=== PATIENT | male | born 1980 | race Caucasian/White ===

== ENCOUNTER 2024-03-29 12:14 | Inpatient (IN) | payer OTHER, MEDICARE, SELFPAY ==
[2024-03-29 12:16] VITALS: BP 123/72; PULSE 121; RESP 16; TEMP 37.3; O2SAT 99; BMI 21.7
--- NOTE | 2024-03-29 12:18 | ECG_ITS ---
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: : [id number] Requested By: Olimpia Donaldson Order Number: [id number] Reading MD: JOHN TREADWELL Measurements Intervals [place] Rate: 119 P: 60 DE: 107 QRS: 53 QRSD: 97 T: 53 QT: 367 QTc: 517 Interpretive Statements SINUS TACHYCARDIA WITH SHORT DE INTERVAL POSSIBLE LEFT ATRIAL ENLARGEMENT [-0.1mV P-WAVE IN V1/V2] MINIMAL ST DEPRESSION [0.025+ mV ST DEPRESSION] ABNORMAL RHYTHM ECG No previous ECG available for comparison Electronically Signed On 03-30-2024 11:50:40 CDT by JOHN TREADWELL [id number]
--- NOTE | 2024-03-29 12:25 | ED.C_ITS ---
HPI - Psych 2 General: Chief Complaint: Psychiatric Symptoms Stated Complaint: ETOH detox, Hearing voices Time Seen by Provider: 03/29/24 12:16 Source: patient and EMS Mode of arrival: EMS Limitations: no limitations History of Present Illness: 44-year-old male states that he has been a longtime alcoholic for the last 30 years. He states he drinks daily that has had some depression he states has been hearing voices but has been drinking heavier. He states he wants to get help with his drinking. He denies being SI or HI. He states he is also been having muscle cramps has not been eating and has had some vomiting. Associated symptoms: Reports auditory hallucinations and depression Related Data Home Medications Medication Instructions Recorded Confirmed No Known Home Medications 03/29/24 03/29/24 Allergies Allergy/AdvReac Type Severity Reaction Status Date / Time bupropion [From Wellbutrin] Allergy ADR-Itching Verified 03/29/24 12:20 Review of Systems 2 Const: Denies: fever(s), chills, body aches or change in appetite ENMT: Denies: throat pain or dental pain Card: Denies: chest pain Resp: Denies: dyspnea GI: Reports: abdominal pain, nausea and vomiting; Denies: diarrhea : Denies: dysuria Musc: Denies: neck pain or back pain Skin/Breast: Denies: rash Neuro: Denies: headache(s) Psych: Reports: depression and auditory hallucinations Physical Exam 2 Const: COMMON NORMALS: no acute distress, patient oriented x3 and healthy appearing HENMT: COMMON NORMALS: normocephalic and atraumatic HEAD & SCALP: n ormocephalic and atraumatic Neck/C-Spine: COMMON NORMALS: full ROM and supple Chest: COMMONS NORMALS: normal inspection of the chest Resp: COMMON NORMALS: normal respiratory effort Cardio: COMMON NORMALS: regular rhythm and No murmurs present (Cardio) R ATE: tachycardic RHYTHM: regular rhythm GI: COMMON NORMALS: Normal to inspection, nondistended, normoactive bowel sounds present, Soft to palpation, non-tender and no masses PALPATION: Yes Soft to palpation Extremity: COMMON NORMALS: normal to inspection and full ROM Neuro: COMMON NORMALS: patient oriented x3, moves all extremities and no focal motor deficits Psych: COMMON NORMALS: mental status grossly normal, Normal thought process present and cooperative THOUGHT PROCESS: Normal thought process present Skin: COMMON NORMALS: no rashes or lesions noted and no wounds GENERAL SKIN EXAM: no rashes or lesions noted Course 2 Vital Signs: Vital signs: Vital Signs Temperature 99.1 F 03/29/24 12:16 Pulse Rate 121 H 03/29/24 12:36 Respiratory Rate 16 03/29/24 12:36 Blood Pressure 123/72 03/29/24 12:36 Pulse Oximetry 99 03/29/24 12:36 Oxygen Delivery Me thod Room Air 03/29/24 12:16 [facility] - Psych Medical Decision Making Patient presents here with hallucinations he voluntarily wants to be admitted to the psych [facility] he has a long history of alcoholism does have an elevated bilirubin is likely chronic he has no signs of common bile duct occlusion he has no pain here he was hypokalemic hypomanic I did replace him in the ER will admit at this time to the psych [facility] Medical Records I reviewed the patient's medical records. Lab Data I reviewed the patient's lab results. 03/29/24 12:23 03/29/24 12:23 Radiology Impressions Abdomen/Pelvis CT 03/29/24 13:16 IMPRESSION: 1. Diffuse fatty infiltration of the liver. 2. Moderate esophageal hiatal hernia with submucosal enhancement suspicious for esophagitis and gastritis. Enhancement extending into the duodenum suspicious for duodenitis. 3. No hydronephrosis in either kidney. Urine distended bladder. 4. No other acute findings. 5. LEFT adrenal adenoma. Laboratory Results WBC 10.60 10^3/uL (3.29-11.43) 03/29/24 12:23 RBC 4.88 10^6/uL (3.85-5.65) 03/29/24 12:23 Hgb 16.40 g/dL (11.27-16.99) 03/29/24 12:23 Hct 46.5 % (37-53) 03/29/24 12:23 MCV 95.3 fl (82-101) 03/29/24 12:23 MCH 33.6 pg (27-33) H 03/29/24 12:23 MCHC 35.3 g/dL (30-55) 03/29/24 12:23 RDW 21.0 % (12.1-15.1) H 03/29/24 12:23 Plt Count 68 10^3/cmm (157-399) L 03/29/24 12:23 MPV 12.6 fL (7.4-10.4) H 03/29/24 12:23 Neut % (Auto) 67.8 % 03/29/24 12:23 Lymph % (Auto) 19.3 % 03/29/24 12:23 [place] % (Auto) 12.3 % 03/29/24 12:23 Eos % (Auto) 0.1 % 03/29/24 12:23 Baso % (Auto) 0.2 % 03/29/24 12:23 Neut # (Auto) 7.19 10^3/uL (1.8-7.7) 03/29/24 12:23 Lymph # (Auto) 2.1 10^3/uL (0.8-4.8) 03/29/24 12:23 [place] # (Auto) 1.3 10^3/uL (0.2-0.9) H 03/29/24 12:23 Eos # (Auto) 0.0 10^3/uL (0.0-0.8) 03/29/24 12:23 Baso # (Auto) 0.0 10^3/uL (0.0-0.1) 03/29/24 12:23 Nucleated RBC % (auto) 0 % 03/29/24 12: Nucleated RBCs # 0.0 /100WBC 03/29/24 12:23 PT 15.00 SECONDS (12.1-14.9) H 03/29/24 12:23 INR 1.14 (0.8-1.2) 03/29/24 12:23 Sodium 133 mmol/L (136-145) L 03/29/24 12:23 Potassium 2.9 mmol/L (3.5-5.1) L 03/29/24 12:23 Chloride 82 mmol/L (98-107) L 03/29/24 12:23 Carbon Dioxide 31 mmol/L (22-29) H 03/29/24 12:23 Anion Gap 22.9 (5-19) H 03/29/24 12:23 BUN 8 mg/dL (6-20) 03/29/24 12:23 Creatinine 1.0 mg/dL (0.7-1.2) 03/29/24 12:23 GFR Calculation 80.8 mL/min (90-130) L 03/29/24 12:23 Glucose 92 mg/dL (65-115) 03/29/24 12:23 Calculated Osmolality 274 mOsm/kg (285-295) L 03/29/24 12:23 Calcium 8.7 mg/dL (8.5-10.5) 03/29/24 12:23 Magnesium 1.3 mg/dL (1.7-2.3) L 03/29/24 12:23 Total Bilirubin 5.2 mg/dL (0.15-1.2) H 03/29/24 12:23 AST 168 U/L (0-40) H 03/29/24 12:23 ALT 122 U/L (0-41) H 03/29/24 12:23 Alkaline Phosphatase 176 U/L (40-130) H 03/29/24 12:23 Total Protein 6.1 g/dL (6.6-8.7) L 03/29/24 12:23 Albumin 3.4 g/dL (3.5-5.2) L 03/29/24 12:23 Globulin 2.7 g/dL (1.3-4.6) 03/29/24 12:23 Lipase 75 U/L (13-60) H 03/29/24 12:23 Salicylates < 0.3 mg/dL (3-10) L 03/29/24 12:23 Urine Opiates Screen Negative ng/mL (Negative) 03/29/24 13:52 Acetaminophen < 5.0 ug/mL (10-30) L 03/29/24 12:23 Ur Barbiturates Screen Negative ng/mL (Negative) 03/29/24 13:52 Ur Phencyclidine Scrn Negative ng/mL (Negative) 03/29/24 13:52 Ur Amphetamines Screen Negative ng/mL (Negative) 03/29/24 13:52 U Benzodiazepines Scrn Negative ng/mL (Negative) 03/29/24 13:52 Urine Cocaine Screen Negative ng/mL (Negative) 03/29/24 13:52 U Marijuana (THC) Screen Positive ng/mL (Negative) H 03/29/24 13:52 Ethyl Alcohol 91 mg/dL (0-10) H 03/29/24 12:23 All radiology interpretation(s) finalized by discharge EKG Data EKG 1: I personally reviewed and interpreted this EKG as follows: EKG interpretation date: 03/29/24 EKG interpretation time: 12:18 Interpretation: sinus tach hr [address] or t wave abnormalities qrs 97 qtc 438 Discharge Plan Discharge Patient Disposition: Admitted As Inpatient Clinical Impression: Hallucinations, Alcohol abuse, Hypokalemia Condition: Stable Prescriptions: No Action No Known Home Medications Coding Level of Care Code ED Purification Supervisor for Devaughn Pulido
[2024-03-29 12:30] LABS: Basophils % 0.2 %; Eosinophils % 0.1 %; Hematocrit 46.5 % (37-53); Lymphocytes # 2.1 10^3/uL (0.8-4.8); Lymphocytes % 19.3 %; Mean Corpuscular HGB Conc 35.3 g/dL (30-55); Mean Corpuscular Hemoglobin 33.6 pg (27-33); Mean Corpuscular Volume 95.3 fl (82-101); Mean Platelet Volume 12.6 fL (7.4-10.4); Monocytes # 1.3 10^3/uL (0.2-0.9); Monocytes % 12.3 %; Neutrophils # 7.19 10^3/uL (1.8-7.7); Neutrophils % 67.8 %; Nucleated Red Blood Cells % 0 %; Platelet Count 68 10^3/cmm (157-399); Red Blood Count 4.88 10^6/uL (3.85-5.65)
[2024-03-29 12:36] VITALS: BP 123/72; PULSE 121; RESP 16; O2SAT 99
[2024-03-29] MEDS: ondansetron 2 mg/ML SDV 2 mL 4 MG IVP (12:36)
[2024-03-29] MEDS: multivitamin therapeutic Tablet 1 TAB PO (12:39)
[2024-03-29 12:52] LABS: Alanine Aminotransferase 122 U/L (0-41); Albumin Level 3.4 g/dL (3.5-5.2); Alcohol Level 91 mg/dL (0-10); Alkaline Phosphatase 176 U/L (40-130); Anion Gap 22.9 (5-19); Aspartate Amino Transferase 168 U/L (0-40); Blood Urea Nitrogen 8 mg/dL (6-20); Calcium 8.7 mg/dL (8.5-10.5); Carbon Dioxide 31 mmol/L (22-29); Chloride 82 mmol/L (98-107); Creatinine Clr Calc Pharmacy 99.7368; Globulin 2.7 g/dL (1.3-4.6); Glomerular Filtration Rate 80.8 mL/min (90-130); Glucose 92 mg/dL (65-115); Lipase 75 U/L (13-60); Magnesium 1.3 mg/dL (1.7-2.3); Osmolality Calculated 274 mOsm/kg (285-295); Sodium 133 mmol/L (136-145); Total Bilirubin 5.2 mg/dL (0.15-1.2); Total Protein 6.1 g/dL (6.6-8.7)
[2024-03-29 12:57] LABS: Acetaminophen < 5.0 ug/mL (10-30); Potassium 2.9 mmol/L (3.5-5.1); Salicylate < 0.3 mg/dL (3-10)
--- NOTE | 2024-03-29 12:58 | PC.PHAR ---
Addendum entered by Nydia Magaña 03/29/24 14:15: [facility] Narcan HCL 8mg spray prn, Omeprazole 20mg qam, and duloxetine hcl 20mg daily. No last fill dates given. Pt states has taken Lamotrigine, gabapentin, ziprasidone, and naltrexone in the past. Unable to verify any of these medications. Original Note: [facility] is [facility] 03/29/24 12:56pm. Pt states takes no current medications but used to take several.
--- NOTE | 2024-03-29 13:16 | CT_ITS ---
WS: [id number] CT ABDOMEN PELVIS TECHNIQUE: Contrast-enhanced CT of the abdomen and pelvis with coronal and sagittal reformatted image s. CLINICAL INFORMATION: abd pain COMPARISON: None. DLP: 490.[address] scans at [facility] use at least one of these dose optimization techniques: automated e xposure control; mA and/or kV adjustment per patient size (includes targeted exams where dose is matc hed to clinical indication); or iterative reconstruction. FINDINGS: Hepatomegaly with diffuse fatty filtration of the liver. Moderate esophageal hiatal hernia with diffu se enhancement suspicious for esophagitis and gastritis. Normal portal vein and splenic vein. Adrenal glands are normal. Small LEFT adrenal nodule measuring 10 mm. Normal renal parenchymal enhancement. Normal pancreatic parenchymal enhancement. Normal portal vein and splenic vein. Normal caliber abdomi nal aorta. Celiac and SMA are patent. Normal portal vein and splenic vein. Normal spleen. Adrenal gla nds are normal. No hydronephrosis in either kidney. Urine distended bladder. CT/CT abdomen pelvis w con* [id number] IMPRESSION: 1. Diffuse fatty infiltration of the liver. 2. Moderate esophageal hiatal hernia with submucosal enhancement suspicious fo r esophagitis and gastritis. Enhancement extending into the duodenum suspicious for duodenitis. 3. No hydronephrosis in either kidney. Urine distended bladder. 4. No other acute findings. 5. LEFT adrenal adenoma.
[2024-03-29] MEDS: potassium chloride ER 20 mEq Tablet 60 MEQ PO (13:21)
[2024-03-29] MEDS: iohexol 350 mg/mL 500 mL Btl (per mL) IV (13:29)
[2024-03-29] MEDS: magnesium sulfate premix 2 GM/50 ML PIGGYBACK IV (13:51)
[2024-03-29 14:10] LABS: INR 1.14 (0.8-1.2)
[2024-03-29 14:16] LABS: Amphetamines Screen Urine Negative (Negative); Barbiturates Screen Urine Negative (Negative); Benzodiazepines Screen Urine Negative (Negative); Cocaine Screen Urine Negative (Negative); Opiate Screen Urine Negative (Negative); PCP Screen Urine Negative (Negative); THC Screen Urine Positive (Negative)
[2024-03-29 17:34] VITALS: BP 116/75; PULSE 116; O2SAT 96
[2024-03-29] MEDS: haloperidol 5 mg Tablet PO (17:55)
--- NOTE | 2024-03-29 17:58 | PC.NURSE ---
ADMINISTERED 5MG HALDOL FOR AUDITORY HALLUCINATIONS. PATIENT STATED TO STAFF THAT IT IS DIFFICULT TO FOCUS ON WHAT STAFF IS SAYING BECAUSE OF THE INTRUSIVE VOICES.
[2024-03-29 18:16] VITALS: BP 124/66; PULSE 145; RESP 20; TEMP 36.6; O2SAT 94
[2024-03-29] MEDS: LORazepam 2 mg Tablet PO (18:47)
--- NOTE | 2024-03-29 18:48 | PC.NURSE ---
ADMINISTERED ATIVAN 2MG PO PER CIWA PROTOCOL. PATIENT SCORED 10 ON SCALE. WILL CONTINUE TO MONITOR.
[2024-03-29 20:00] VITALS: BP 109/70; PULSE 117; RESP 16; TEMP 36.9; O2SAT 92
[2024-03-29 23:53] VITALS: BP 100/70; PULSE 80; RESP 16; O2SAT 98
[2024-03-30 03:50] VITALS: BP 112/76; PULSE 110; RESP 17; TEMP 37.5; O2SAT 94
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
[2024-03-30 07:46] VITALS: BP 96/65; PULSE 119; RESP 18; TEMP 36.8; O2SAT 93
--- NOTE | 2024-03-30 07:56 | PC.NURSE ---
PT C/O OF ACID REFLUX FROM DRINKING SO MUCH ALCOHOL. PT WAS ASSURED THAT RN WOULD OBTAIN ORDERS FOR MAALOX 30 MLS Q 4 HOURS NEEDED FOR INDIGESTION. PT IS HERE FOR ALCOHOL WITHDRAWALS AND SCORED 16 ON CIWA PROTOCOL. PT IS VISIBLY SHAKEY WITH TREMORS OBSERVED AND INCREASED ANXIETY. PT IS UNSURE OF DATE AND TIME AND IS NOT ABLE TO TELL RN THE YEAR. MED NURSE WAS NOTIFIED TO GIVE ATIVAN ORDERED PER CIWA PROTOCOL AND MAALOX FOR INDIGESTION. PT THANKS RN. SUPPORT VOICED.
[2024-03-30] MEDS: folic acid 1 mg Tablet PO (08:38)
[2024-03-30] MEDS: thiamine 100 mg Tablet PO (08:38)
[2024-03-30] MEDS: LORazepam 2 mg Tablet PO ×2 (08:38→21:10)
[2024-03-30] MEDS: alum-mag-hydroxide-sime 30 mL UDC PO (08:38)
[2024-03-30] MEDS: multivitamin therapeutic Tablet 1 TAB PO (08:38)
--- NOTE | 2024-03-30 09:19 | PC.NURSE ---
PT RESTING IN BED. CONTINUES [facility] PROTOCOL FOR ALCOHOL WITHDRAWAL. PT DID RECEIVE 2 MG OF ATIVAN THIS AM DUE TO VISIBLE TREMORS, ANXIETY AND NOT ORIENTATED. PT RATES PAIN 2/10 THAT IS INDIGESTION IN NATURE. MAALOX 30 MG WAS GIVEN FOR INDIGESTIONS. PT IS NOTED TO HAVE FLAT AFFECT AND GUARDED WITH STAFF. PT IS NOTED TO BE WITHDRAWN. DENIES SI/HI AND VH AT THIS TIME. RATES ANXIETY 9/10 AND DEPRESSION 8/10. PT STATES HIS SLEEP WAS ON AND OFF. PT0 ENDORSE AUDITORY HALLUCINATIONS THAT ARE NEGATIVE AND COMMANDING. PT STATES THAT'S WHY I DRINK TO KEEP THE VOICES AWAY. PT STATES GOAL TODAY IS JUST TO GET THROUGH IT. ALL QUESTIONS ANSWERED AND SUPPORT WAS VOICED.
[2024-03-30 12:00] VITALS: BP 108/73; PULSE 115; RESP 18; TEMP 37.2; O2SAT 97
[2024-03-30 16:00] VITALS: BP 100/69; PULSE 129; RESP 20; TEMP 37.3; O2SAT 94
[2024-03-30 20:00] VITALS: BP 116/77; PULSE 100; RESP 16; TEMP 36.8; O2SAT 95
[2024-03-30] MEDS: ondansetron 4 MG Tablet PO (21:11)
[2024-03-30] MEDS: trazodone 50 mg Tablet PO (21:11)
--- NOTE | 2024-03-30 21:18 | NPU.GN ---
[facility] Topic: General Mood of Group20:00 CIWA =12
[2024-03-31] VITALS: BP 110/76; PULSE 90; RESP 16
[2024-03-31 04:00] VITALS: BP 110/60; PULSE 88; RESP 16
[2024-03-31 07:41] VITALS: BP 111/81; PULSE 114; RESP 18; TEMP 37.7; O2SAT 95
[2024-03-31] MEDS: folic acid 1 mg Tablet PO (08:43)
[2024-03-31] MEDS: multivitamin therapeutic Tablet 1 TAB PO (08:43)
[2024-03-31] MEDS: thiamine 100 mg Tablet PO (08:43)
[2024-03-31] MEDS: nicotine 21 mg Patch 1 PATCH TRANSDERMA (08:47)
[2024-03-31] MEDS: LORazepam 2 mg Tablet PO ×2 (08:48→20:58)
[2024-03-31] MEDS: paliperidone ER 6 mg Tablet PO (09:36)
[2024-03-31 14:27] VITALS: BP 144/82; PULSE 73; RESP 16; TEMP 36.8; O2SAT 98
--- NOTE | 2024-03-31 16:51 | P.NPUPN_ITS ---
Subjective NPU 2 Subjective: Patient presented today reporting that he is doing okay. We discussed, benefits and alternatives of initiating Invega 6 mg p.o. daily and he understood and agreed to proceed as is documented in this note. He is still struggling with reports of discomfort in his esophagus and we also reviewed the risks, benefits and alternatives of a proton pump inhibitor and he understood and agreed to proceed as documented with that medication as well. He denied any side effects to the medication. Mental Status Exam 2 MSE Comments: This is an slender, underweight white male in hospital scrubs with limited grooming and eye contact. No abnormal movements except for psychomotor retardation. Cooperative with exam in mild to moderate distress. Speech was mostly decreased rate and volume. Mood described as a little down, affect slightly odd and guarded. Thought process was linear and mostly organized. Thought content: Patient denied suicidal or homicidal ideation , there were no delusions reported but concerns for paranoid or persecutory delusions noted, he denied visual but endorsed auditory hallucinations. The patient reported feeling paranoid and hearing voices. He denied any current thoughts of self-harm or harm to others. He reported feeling tired and has been sleeping a lot. His mental health symptoms appear to be exacerbated by substance use.him Attention and concentration were intact and memory appeared mostly reliable but none were formally tested. He is alert and oriented x 3. Insight and judgment limited, impulse control is impaired. Vitals/I&O/Wt Last Vital Signs Temp 98.3 F 03/31/24 14:27 Pulse 73 03/31/24 14:27 Resp 16 03/31/24 14:27 BP 144/82 03/31/24 14:27 Pulse Ox 98 03/31/24 14:27 O2 Del Method Room Air 03/31/24 14:27 Data NPU 03/29/24 12:23 03/29/24 12:23 A&P Assessment and plan (1) Hallucinations: (2) Alcohol use disorder, severe, dependence: (3) Alcohol intoxication: (4) Alcohol withdrawal: (5) Psychosis: Plan This is a 44-year-old white male who presented denying significant mental health history till recently possibly. The patient presents with a complex history of substance abuse, trauma, and mental health issues, including auditory hallucinations and paranoia. His excessive alcohol consumption has led to physical health issues, including damage to his esophagus. 1. Consider starting Invega 6 mg p.o. daily. 2. Continue every 15 minute checks for safety. 3. Encourage individual, group and milieu therapies. 4. Obtain collateral information on what his baseline actually is. 5. Encourage sober living treatment after discharge at the highest level of care to which he is willing to commit. 6. Continue CIWA protocol Involuntary Hold Information 2 96 Hour Hold: 96 Hour Involuntary Admission: No Attestations NPU 2 Medical Necessity Statement*: Inpatient hospitalization is medically necessary and the clinically appropriate intervention at this time. We will monitor medication to make changes as indicated. His likely length of stay 2-4 days. Coding Level of Care Code Acute Code for g Fwd Diagnoses Hallucinations R44.3 Alcohol use disorder, severe, dependence F10.20 Alcohol intoxication F10.929 Alcohol withdrawal F10.939 Psychosis F29
[2024-03-31] MEDS: pantoprazole DR 40 mg Tablet PO (17:54)
[2024-03-31 20:00] VITALS: BP 101/76; PULSE 112; RESP 17; TEMP 36.9; O2SAT 97
[2024-03-31] MEDS: trazodone 50 mg Tablet PO ×2 (20:40→23:42)
[2024-03-31 23:51] VITALS: BP 124/86; PULSE 127; RESP 18; TEMP 36.7; O2SAT 100
[2024-04-01 04:00] VITALS: BP 108/76; PULSE 130; RESP 18; O2SAT 99
[2024-04-01] MEDS: LORazepam 2 mg Tablet PO (04:11)
[2024-04-01 08:00] VITALS: BP 119/87; PULSE 120; RESP 17; O2SAT 99
[2024-04-01] MEDS: folic acid 1 mg Tablet PO (08:24)
[2024-04-01] MEDS: paliperidone ER 6 mg Tablet PO (08:24)
[2024-04-01] MEDS: thiamine 100 mg Tablet PO (08:24)
[2024-04-01] MEDS: multivitamin therapeutic Tablet 1 TAB PO (08:24)
[2024-04-01] MEDS: pantoprazole DR 40 mg Tablet PO (08:24)
--- NOTE | 2024-04-01 09:24 | PC.NURSE ---
Patient denies si/hi and vh. Patient does endorse ah. He states the voices are not saying anything in particular and that he is attempting to ignore. Patient says his depression is about the same as it was when he was admitted. He endorses a headache of a 4/10 and says he slept like crap last night.
[2024-04-01] MEDS: nicotine 21 mg Patch 1 PATCH TRANSDERMA (11:25)
[2024-04-01 12:00] VITALS: BP 126/80; PULSE 126; RESP 18; O2SAT 99
[2024-04-01 16:00] VITALS: BP 112/75; PULSE 110; RESP 17; TEMP 36.6; O2SAT 96
--- NOTE | 2024-04-01 18:30 | P.NPUPN_ITS ---
Subjective NPU 2 Subjective: Patient presents today reporting that things are going okay. He reports some continued withdrawal symptoms but that he is continuing to get medication for those symptoms. We discussed his questions about possible follow-up treatment will be best managed by the social work team on Wednesday. He reports he is open to a lot of possibilities and wants to make sure that he has success from this attempt at sobriety. He denies any side effects to the medication. Mental Status Exam 2 MSE Comments: This is an slender, underweight white male in hospital scrubs with limited grooming and eye contact. No abnormal movements except for psychomotor retardation. Cooperative with exam in mild to moderate distress. Speech was mostly decreased rate and volume. Mood described as a little down, affect slightly odd and guarded. Thought process was linear and mostly organized. Thought content: Patient denied suicidal or homicidal ideation , there were no delusions reported but concerns for paranoid or persecutory delusions noted, he denied visual but endorsed auditory hallucinations. The patient reported feeling paranoid and hearing voices. He denied any current thoughts of self-harm or harm to others. He reported feeling tired and has been sleeping a lot. His mental health symptoms appear to be exacerbated by substance use.him Attention and concentration were intact and memory appeared mostly reliable but none were formally tested. He is alert and oriented x 3. Insight and judgment limited, impulse control is impaired. Vitals/I&O/Wt Last Vital Signs Temp 97.8 F 04/01/24 19:29 Pulse 142 H 04/01/24 19:29 Resp 20 H 04/01/24 19:29 BP 111/79 04/01/24 19:29 Pulse Ox 97 04/01/24 19:29 O2 Del Method Room Air 04/01/24 19:29 Weight last 48 hrs Weight 75.296 kg Data NPU 03/29/24 12:23 03/29/24 12:23 A&P Assessment and plan (1) Hallucinations: (2) Alcohol use disorder, severe, dependence: (3) Alcohol intoxication: (4) Alcohol withdrawal: (5) Psychosis: Plan This is a 44-year-old white male who presented denying significant mental health history till recently possibly. The patient presents with a complex history of substance abuse, trauma, and mental health issues, including auditory hallucinations and paranoia. His excessive alcohol consumption has led to physical health issues, including damage to his esophagus. 1. Consider starting Invega 6 mg p.o. daily. 2. Continue every 15 minute checks for safety. 3. Encourage individual, group and milieu therapies. 4. Obtain collateral information on what his baseline actually is. 5. Encourage sober living treatment after discharge at the highest level of care to which he is willing to commit. 6. Continue [facility] protocol Involuntary Hold Information 2 96 Hour Hold: 96 Hour Involuntary Admission: No Attestations NPU 2 Medical Necessity Statement*: Inpatient hospitalization is medically necessary and the clinically appropriate intervention at this time. We will monitor medication to make changes as indicated. His likely length of stay 2-3 days. Coding Level of Care Code Acute Code for g Fwd Diagnoses Hallucinations R44.3 Alcohol use disorder, severe, dependence F10.20 Alcohol intoxication F10.929 Alcohol withdrawal F10.939 Psychosis F29
[2024-04-01 19:29] VITALS: BP 111/79; PULSE 142; RESP 20; TEMP 36.6; O2SAT 97
[2024-04-01] MEDS: nicotine 2 mg Gum BUCCAL (20:17)
[2024-04-01] MEDS: trazodone 50 mg Tablet PO (20:48)
[2024-04-01] MEDS: acetaminophen 325 mg Tablet 650 MG PO (20:48)
[2024-04-01] MEDS: OLANZapine 5 mg ODT PO (20:49)
[2024-04-02] VITALS: BP 124/78; PULSE 106; RESP 18; TEMP 36.9; O2SAT 97
[2024-04-02] MEDS: nicotine 2 mg Gum BUCCAL (01:44)
[2024-04-02] MEDS: haloperidol 5 mg Tablet PO ×2 (01:47→20:04)
[2024-04-02 04:00] VITALS: BP 118/80; PULSE 129; RESP 18; TEMP 36.6; O2SAT 98
[2024-04-02 06:00] VITALS: BMI 22.5
[2024-04-02 07:51] VITALS: BP 108/71; PULSE 93; RESP 16; TEMP 37.3; O2SAT 95
[2024-04-02] MEDS: multivitamin therapeutic Tablet 1 TAB PO (08:13)
[2024-04-02] MEDS: paliperidone ER 6 mg Tablet PO (08:13)
[2024-04-02] MEDS: thiamine 100 mg Tablet PO (08:13)
[2024-04-02] MEDS: nicotine 21 mg Patch 1 PATCH TRANSDERMA (08:13)
[2024-04-02] MEDS: folic acid 1 mg Tablet PO (08:13)
[2024-04-02] MEDS: pantoprazole DR 40 mg Tablet PO (08:13)
[2024-04-02 12:00] VITALS: BP 120/85; PULSE 108; RESP 17; TEMP 37.1; O2SAT 98
[2024-04-02 16:00] VITALS: BP 124/85; PULSE 113; RESP 17; TEMP 36.6; O2SAT 99
[2024-04-02] MEDS: acetaminophen 325 mg Tablet 650 MG PO (16:38)
--- NOTE | 2024-04-02 19:04 | P.NPUPN_ITS ---
Subjective NPU 2 Subjective: Patient presents today reporting that he is doing all right. He continues to be very comfortable with being here per staff reports and direct observation. He endorses having limited options and is really hopeful that the social work team will be able to assist him in finding some options when they return tomorrow. He denied any side effects of the medications. Mental Status Exam 2 MSE Comments: This is an slender, underweight white male in hospital scrubs with improved grooming and eye contact. No abnormal movements except for psychomotor retardation. Cooperative with exam in mild distress. Speech was mostly decreased rate and volume. Mood described as a little better, affect slightly odd and guarded. Thought process was linear and mostly organized. Thought content: Patient denied suicidal or homicidal ideation , there were no delusions reported but concerns for paranoid or persecutory delusions noted, he denied visual but endorsed auditory hallucinations. Attention and concentration were intact and memory appeared mostly reliable but none were formally tested. He is alert and oriented x 3. Insight and judgment limited, impulse control is impaired. Vitals/I&O/Wt Last Vital Signs Temp 97.8 F 04/02/24 16:00 Pulse 113 H 04/02/24 16:00 Resp 17 04/02/24 16:00 BP 124/85 04/02/24 16:00 Pulse Ox 99 04/02/24 16:00 O2 Del Method Room Air 04/02/24 04:00 04/02/24 04/02/24 04/02/24 06:59 14:59 22:59 Intake Total 600 / 600 Balance 600 / 600 Weight last 48 hrs Weight 75.296 kg Data NPU 03/29/24 12:23 03/29/24 12:23 A&P Assessment and plan (1) Hallucinations: (2) Alcohol use disorder, severe, dependence: (3) Alcohol intoxication: (4) Alcohol withdrawal: (5) Psychosis: Plan This is a 44-year-old white male who presented denying significant mental health history till recently possibly. The patient presents with a complex history of substance abuse, trauma, and mental health issues, including auditory hallucinations and paranoia. His excessive alcohol consumption has led to physical health issues, including damage to his esophagus. 1. Consider starting Invega 6 mg p.o. daily. 2. Continue every 15 minute checks for safety. 3. Encourage individual, group and milieu therapies. 4. Obtain collateral information on what his baseline actually is. 5. Encourage sober living treatment after discharge at the highest level of care to which he is willing to commit. 6. Continue [facility] protocol Involuntary Hold Information 2 96 Hour Hold: 96 Hour Involuntary Admission: No Attestations NPU 2 Medical Necessity Statement*: Inpatient hospitalization is medically necessary and the clinically appropriate intervention at this time. We will monitor medication to make changes as indicated. His likely length of stay 1 -3 days. Coding Level of Care Code Acute Code for g Fwd Diagnoses Hallucinations R44.3 Alcohol use disorder, severe, dependence F10.20 Alcohol intoxication F10.929 Alcohol withdrawal F10.939 Psychosis F29
[2024-04-02 20:00] VITALS: BP 136/93; PULSE 114; RESP 16; TEMP 37.3; O2SAT 98
[2024-04-02] MEDS: trazodone 50 mg Tablet PO (20:03)
[2024-04-03] VITALS: BP 134/93; PULSE 114; RESP 18; TEMP 36.9; O2SAT 97
[2024-04-03] MEDS: acetaminophen 325 mg Tablet 650 MG PO (01:59)
[2024-04-03 04:00] VITALS: BP 125/82; PULSE 74; RESP 16; O2SAT 96
[2024-04-03 07:27] VITALS: BP 124/78; PULSE 82; RESP 16; TEMP 36.7; O2SAT 96
[2024-04-03] MEDS: paliperidone ER 6 mg Tablet PO (08:36)
[2024-04-03] MEDS: pantoprazole DR 40 mg Tablet PO (08:36)
[2024-04-03] MEDS: folic acid 1 mg Tablet PO (08:36)
[2024-04-03] MEDS: multivitamin therapeutic Tablet 1 TAB PO (08:36)
[2024-04-03] MEDS: thiamine 100 mg Tablet PO (08:36)
[2024-04-03] MEDS: nicotine 21 mg Patch 1 PATCH TRANSDERMA (08:39)
[2024-04-03 11:21] VITALS: BP 117/78; PULSE 112; RESP 16; TEMP 36.8; O2SAT 94
[2024-04-03 13:59] VITALS: BP 154/95; PULSE 116; RESP 16; TEMP 36.6; O2SAT 99
--- NOTE | 2024-04-03 15:13 | W.PM.NPUDCS ---
Diagnoses at Discharge Discharge Diagnosis (1) Hallucinations: Status: Acute (2) Alcohol use disorder, severe, dependence: Status: Acute (3) Alcohol intoxication: Status: Acute (4) Alcohol withdrawal: Status: Acute (5) Psychosis: Status: Acute Reason for Visit Reason for Visit: ETOH detox, Hearing voices Involuntary Hold Information 96 Hour Hold: 96 Hour Involuntary Admission: No Mental Status Exam MSE Comments: This is an slender, underweight white male in hospital scrubs with improved grooming and eye contact. No abnormal movements except for psychomotor retardation. Cooperative with exam in mild distress. Speech was mostly decreased rate and volume. Mood described as a little better, affect slightly odd and guarded. Thought process was linear and mostly organized. Thought content: Patient denied suicidal or homicidal ideation , there were no delusions reported but concerns for paranoid or persecutory delusions noted, he denied visual but endorsed auditory hallucinations. Attention and concentration were intact and memory appeared mostly reliable but none were formally tested. He is alert and oriented x 3. Insight and judgment limited, impulse control is impaired. Discharge Data Studies Completed and Pending: Completed Studies During Hospitalization Category Date Time Status CT abdomen pelvis w con* [id number] Stat Cat Scan 03/29/24 13:16 Completed Radiology Impressions Abdomen/Pelvis CT 03/29/24 13:16 IMPRESSION: 1. Diffuse fatty infiltration of the liver. 2. Moderate esophageal hiatal hernia with submucosal enhancement suspicious for esophagitis and gastritis. Enhancement extending into the duodenum suspicious for duodenitis. 3. No hydronephrosis in either kidney. Urine distended bladder. 4. No other acute findings. 5. LEFT adrenal adenoma. Laboratory Results WBC 10.60 10^3/uL (3. 29-11.43) 03/29/24 12:23 RBC 4.88 10^6/uL (3.8 5-5.65) 03/29/24 12:23 Hgb 16.40 g/dL (11.27 -16.99) 03/29/24 12:23 Hct 46.5 % (37-53) 03/29/24 12:23 MCV 95.3 fl (82-101) 03/29/24 12:23 MCH 33.6 pg (27-33) H 03/29/24 12:23 MCHC 35.3 g/dL (30-55) 03/29/24 12:23 RDW 21.0 % (12.1-15.1 ) H 03/29/24 12:23 Plt Count 68 10^3/cmm (157- 399) L 03/29/24 12:23 MPV 12.6 fL (7.4-10.4 ) H 03/29/24 12:23 Neut % (Auto) 67.8 % 03/29/24 12:23 Lymph % (Auto) 19.3 % 03/29/24 12:23 [place] % (Auto) 12.3 % 03/29/24 12:23 Eos % (Auto) 0.1 % 03/29/24 12:23 Baso % (Auto) 0.2 % 03/29/24 12:23 Neut # (Auto) 7.19 10^3/uL (1.8 -7.7) 03/29/24 12:23 Lymph # (Auto) 2.1 10^3/uL (0.8- 4.8) 03/29/24 12:23 [place] # (Auto) 1.3 10^3/uL (0.2- 0.9) H 03/29/24 12:23 Eos # (Auto) 0.0 10^3/uL (0.0- 0.8) 03/29/24 12:23 Baso # (Auto) 0.0 10^3/uL (0.0- 0.1) 03/29/24 12:23 Nucleated RBC % (a uto) 0 % 03/29/24 12:23 Nucleated RBCs # 0.0 /100WBC 03/29/24 12:23 PT 15.00 SECONDS (12 .1-14.9) H 03/29/24 12:23 INR 1.14 (0.8-1.2) 03/29/24 12:23 Sodium 133 mmol/L (136-1 45) L 03/29/24 12:23 Potassium 2.9 mmol/L (3.5-5 .1) L 03/29/24 12:23 Chloride 82 mmol/L (98-107 ) L 03/29/24 12:23 Carbon Dioxide 31 mmol/L (22-29) H 03/29/24 12:23 Anion Gap 22.9 (5-19) H 03/29/24 12:23 BUN 8 mg/dL (6-20) 03/29/24 12:23 Creatinine 1.0 mg/dL (0.7-1. 2) 03/29/24 12:23 GFR Calculation 80.8 mL/min (90-1 30) L 03/29/24 12:23 Glucose 92 mg/dL (65-115) 03/29/24 12:23 Calculated Osmolal ity 274 mOsm/kg (285- 295) L 03/29/24 12:23 Calcium 8.7 mg/dL (8.5-10 .5) 03/29/24 12:23 Magnesium 1.3 mg/dL (1.7-2. 3) L 03/29/24 12:23 Total Bilirubin 5.2 mg/dL (0.15-1 .2) H 03/29/24 12:23 AST 168 U/L (0-40) H 03/29/24 12:23 ALT 122 U/L (0-41) H 03/29/24 12:23 Alkaline Phosphata se 176 U/L (40-130) H 03/29/24 12:23 Total Protein 6.1 g/dL (6.6-8.7 ) L 03/29/24 12:23 Albumin 3.4 g/dL (3.5-5.2 ) L 03/29/24 12:23 Globulin 2.7 g/dL (1.3-4.6 ) 03/29/24 12:23 Lipase 75 U/L (13-60) H 03/29/24 12:23 Salicylates < 0.3 mg/dL (3-10 ) L 03/29/24 12:23 Urine Opiates Scre en Negative ng/mL (N egative) 03/29/24 13:52 Acetaminophen < 5.0 ug/mL (10-3 0) L 03/29/24 12:23 Ur Barbiturates Sc reen Negative ng/mL (N egative) 03/29/24 13:52 Ur Phencyclidine S crn Negative ng/mL (N egative) 03/29/24 13:52 Ur Amphetamines Sc reen Negative ng/mL (N egative) 03/29/24 13:52 U Benzodiazepines Scrn Negative ng/mL (N egative) 03/29/24 13:52 Urine Cocaine Scre en Negative ng/mL (N egative) 03/29/24 13:52 U Marijuana (THC) Screen Positive ng/mL (N egative) H 03/29/24 13:52 Ethyl Alcohol 91 mg/dL (0-10) H 03/29/24 12:23 Vitals: Last Vital Signs Temp 97.9 F 04/03/24 13:59 Pulse 116 H 04/03/24 13:59 Resp 16 04/03/24 13:59 BP 154/95 04/03/24 13:59 Pulse Ox 99 04/03/24 13:59 O2 Del Method Room Air 04/03/24 13:59 Discharge Plan Discharge Patient Disposition: Home Condition: Stable Prescriptions: New trazodone 50 mg Tablet 50 mg PO BEDTIME PRN (Reason: Sleep) 30 Days Qty: 30 1RF pantoprazole 40 mg Tablet,Delayed Release (Dr/Ec) 40 mg PO DAILY 30 Days Qty: 30 1RF paliperidone 6 mg Tablet Extended Release 24 Hr 6 mg PO DAILY 30 Days Qty: 30 1RF thiamine mononitrate (vit B1) [Vitamin B-1 (mononitrate)] 100 mg Tablet 100 mg PO DAILY 30 Days Qty: 30 1RF Discharge Orders: Discharge Order (Routine); Ordered 04/03/24 Ordered By: Herminio Stearns Discharge Diet: Regular Discharge Activity: Resume usual activity Patient Instructions: Opioid Safety Discharge Attestations NPU Time Spent in Discharge Care*: less than 30 min Specific Discharge Activities: Specific discharge activities: educating patient, discussing with bilingual patient support caseworker/social workers/dc planners, documenting/other paperwork and evaluating patient/reviewing data Coding Level of Care Code Acute Code for Chg Fwd Diagnoses Hallucinations R44.3 Alcohol use disorder, severe, dependence F10.20 Alcohol intoxication F10.929 Alcohol withdrawal F10.939 Psychosis F29
--- NOTE | 2024-04-03 15:17 | DCPLANNER ---
IMM completed on 04/03/24 @ 3175 and pt given a copy of his rights.
[2024-04-03 15:36] VITALS: BP 154/95; PULSE 116; RESP 16; TEMP 36.6; O2SAT 99
== END 2024-04-03 17:23 | disposition home or self-care (01) | DRG 881 ==
LOC: ER 15:02 → NP 16:12
PROVIDERS: Admitting Provider Psychiatry & Neurology Psychiatry; Emergency Provider Emergency Medicine; Visit Provider Psychiatry & Neurology Psychiatry
DX: F32.A Depression, unspecified (principal); R44.3 Hallucinations, unspecified; F10.229 Alcohol dependence with intoxication, unspecified; Y90.4 Blood alcohol level of 80-99 mg/100 ml; R25.2 Cramp and spasm; E87.6 Hypokalemia; F17.210 Nicotine dependence, cigarettes, uncomplicated; F12.90 Cannabis use, unspecified, uncomplicated
CPT/HCPCS: 74177; 80053; 80306; 80307; 83690; 83735; 85025; 85610; 93005; 96365; 96372; 96375; 97150; 97165; 99285; J2405; J3411; J3475; Q0162